=== PATIENT | female | born 1990 ===

== ENCOUNTER 2019-02-22 23:20 | Inpatient (IN) | payer OTHER ==
[2019-02-23] MEDS ORDERED: hydrOXYzine Pamoate 25 MG Cap PO ONE (01:33)
[2019-02-23] MEDS ORDERED: Lidocaine 1% 50 ML MDV INJECT PRN (04:26)
[2019-02-23] MEDS ORDERED: Carboprost Tromethamine 250 MCG/1 ML Amp IM PRN (04:26)
[2019-02-23] MEDS ORDERED: Sodium Chloride 0.9% 10 ML SDV IV PRN (04:26)
[2019-02-23] MEDS ORDERED: Tranexamic Acid 1,000 MG in Sodium Chloride 0.9% 100 ML IV PRN (04:26)
[2019-02-23] MEDS ORDERED: Nalbuphine 10 MG/1 ML Vial IVPUSH PRN (04:26)
[2019-02-23] MEDS ORDERED: Methylergonovine 0.2 MG/1 ML Amp IM PRN (04:26)
[2019-02-23] MEDS ORDERED: Ondansetron 4 MG/2 ML SDV IVPUSH PRN (04:26)
[2019-02-23] MEDS ORDERED: Misoprostol 200 MCG Tab PO PRN (04:26)
[2019-02-23] MEDS ORDERED: Sodium Chloride 0.9% 2.5 ML Syringe FLUSH PRN (04:26)
[2019-02-23] MEDS ORDERED: Butorphanol 1 MG/ML SDV IVPUSH PRN (04:26)
[2019-02-23] MEDS ORDERED: Sodium Chloride 0.9% 10 ML Syringe FLUSH PRN (04:26)
[2019-02-23] MEDS ORDERED: Water For Irrigation,Sterile 1,000 ML Container IRR PRN (04:26)
[2019-02-23] MEDS ORDERED: Oxytocin/0.9 % Sodium Chloride 30 UNIT/500 ML BAG IV SCH (04:30)
[2019-02-23] MEDS ORDERED: Lactated Ringers 1,000 ML IV SCH (04:30)
[2019-02-23] MEDS ORDERED: Ropivacaine HCl/PF 100 ML ONE (06:54)
--- NOTE | 2019-02-23 07:16 | PCM.PREANE ---
Preanesthetic Assessment - Anesthesia/Transfusion/Family Hx Anesthesia History: Prior Anesthesia Without Reaction Family History of Anesthesia Reaction: No Transfusion History: No Prior Transfusion(s) - Review of Systems General: No Symptoms Pulmonary: No Symptoms Cardiovascular: No Symptoms Gastrointestinal: No Symptoms Neurological: No Symptoms - Physical Assessment Height: 1.7 m Weight: 93.894 kg ASA Class: 1 - Lab Values: Laboratory Last Values WBC 13.50 K/uL (4.0-11.0) H 02/23/19 04:43 RBC 4.79 M/uL (4.30-5.90) 02/23/19 04:43 Hgb 12.0 g/dL (12.0-16.0) 02/23/19 04:43 Hct 37.4 % (36.0-46.0) 02/23/19 04:43 MCV 78.1 fL (80.0-98.0) L 02/23/19 04:43 MCH 25.1 pg (27.0-32.0) L 02/23/19 04:43 MCHC 32.1 g/dL (31.0-37.0) 02/23/19 04:43 RDW Std Deviation 45.3 fl (28.0-62.0) 02/23/19 04:43 RDW Coeff of Eric 16 % (11.0-15.0) H 02/23/19 04:43 Plt Count 262 K/uL (150-400) 02/23/19 04:43 MPV 9.40 fL (7.40-12.00) 02/23/19 04:43 Nucleated RBC % 0.0 /100WBC 02/23/19 04:43 Nucleated RBCs # 0 K/uL 02/23/19 04:43 Blood Type B POSITIVE 02/23/19 04:43 Antibody Screen NEGATIVE 02/23/19 04:43 - Allergies Allergies/Adverse Reactions: Allergies Allergy/AdvReac Type Severity Reaction Status Date / Time No Known Allergies Allergy Verified 02/20/19 00:13 - Acknowledgements Anesthesia Type Planned: Epidural Pt an Appropriate Candidate for the Planned Anesthesia: Yes Alternatives and Risks of Anesthesia Discussed w Pt/Guardian: Yes Pt/Guardian Understands and Agrees with Anesthesia Plan: Yes PreAnesthesia Questionnaire - Past Health History Medical/Surgical History: Denies Medical/Surgical History 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: Reports: - Past Surgical History HEENT Surgical History: Reports: Oral Surgery, Other (See Below) Other HEENT Surgeries/Procedures: wisdom teeth - SUBSTANCE USE Smoking Status *Q: Former Smoker Tobacco Use Within Last Twelve Months: No Second Hand Smoke Exposure: No Recreational Drug Use History: No - HOME MEDS Home Medications: Home Meds PNV #116/Iron Fumarate/FA/DHA [Expecta Combo Pack] 02/20/19 [History] - CURRENT (IN HOUSE) MEDS Current Meds: Current Medications Butorphanol Tartrate (Stadol) 1 mg IVPUSH Q1H PRN PRN Reason: Pain Last Admin: 02/23/19 04:54 Dose: 1 mg Carboprost Tromethamine (Hemabate Ds) 250 mcg IM ASDIRECTED PRN PRN Reason: Post Hemorrhage Tranexamic Acid 1,000 mg/ (Sodium Chloride) 110 mls @ 660 mls/hr IV ONETIME PRN PRN Reason: Bleeding Lactated Ringer's (Ringers, Lactated) 1,000 mls @ 150 mls/hr IV ASDIRECTED PAULA Last Admin: 02/23/19 04:54 Dose: 999 mls/hr Oxytocin/Sodium Chloride (Oxytocin 30 Unit/500 Ml-Ns) 30 unit in 500 mls @ 555 mls/hr IV TITRATE PAULA Lidocaine HCl (Xylocaine 1%) 50 ml INJECT ONETIME PRN PRN Reason: Laceration repair Methylergonovine Maleate (Methergine) 0.2 mg IM ASDIRECTED PRN PRN Reason: Post Hemorrhage Misoprostol (Cytotec) 200 mcg PO ONETIME PRN PRN Reason: Post Hemorrhage Nalbuphine HCl (Nubain) 10 mg IVPUSH Q1H PRN PRN Reason: Pain (severe 7-10) Ondansetron HCl (Zofran) 4 mg IVPUSH Q4H PRN PRN Reason: Nausea/Vomiting Sodium Chloride (Saline Flush) 10 ml FLUSH ASDIRECTED PRN PRN Reason: Keep Vein Open Sodium Chloride (Saline Flush) 2.5 ml FLUSH ASDIRECTED PRN PRN Reason: Keep Vein Open Sodium Chloride (Normal Saline) 10 ml IV ASDIRECTED PRN PRN Reason: IV Use Sterile Water (Sterile Water For Irrigation) 1,000 ml IRR ASDIRECTED PRN PRN Reason: delivery Discontinued Medications Hydroxyzine Pamoate (Vistaril) 50 mg PO ONETIME ONE Stop: 02/23/19 01:34 Last Admin: 02/23/19 02:02 Dose: 50 mg Ropivacaine (Naropin 0.2%) Confirm Administered Dose 100 mls @ as directed .ROUTE .STK-MED ONE Stop: 02/23/19 06:55
--- NOTE | 2019-02-23 07:20 | PCM.PRNOTE ---
- Free Text/Narrative Note: Anes Note Patient requsts epidural for L&D. Sitting position. Level L3-L4 Midline approach. Sterile technique. Cloroprep to lumbar area. Sterile fenestrated drape applied. Epidural space at 5 cm easily achieved single attempt with ease. Cath threaded 4 cm with ease. 9 cm devan at skin. Sterile dressing applied. Tolerated well. Test dose 0705 3 cc 1.5% lido with epi negative. Loading dose 10 cc 0.2% ropivicaine in slow divided doses 0707. Pump started with same solution at 0710. Leonardo well. Patient reports excellent analgesia. 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
[2019-02-23] MEDS ORDERED: Bupivacaine 0.5% 10 ML SDV ONE (08:10)
--- NOTE | 2019-02-23 11:32 | PCM.DEL ---
L & D Note - General Info Date of Service: 02/23/19 Mother's Due Date: 02/28/19 - Delivery Note Labor: Spontaneous, Augmented by Oxytocin Delivery Outcome: Livebirth Infant Delivery Method: Spontaneous Vaginal Delivery-Single Presentation: Left Occiput Anterior (VERITO) Nuchal Cord: None Prep: Other Anesthesia Type: Epidural Amniotic Fluid Description: Clear Episiotomy Type: None Laceration: None, 3rd Degree Suture type: Vicryl, Other (PDS for sphincter) Suture size: 3-0 Placenta: Intact, Spontaneous Cord: 3 Vessels Estimated Blood Loss: 300 Resuscitation Needed: Yes Watchung: Suctioned Score 1 min: 8 Delivery Comments (Free Text/Narrative):: Liveborn male 4400 grams. - General Info Date of Service: 02/23/19 - Patient Data Weight - Most Recent: 93.894 kg Lab Results Last 24 Hours: Laboratory Results - last 24 hr 02/23/19 02/23/19 Range/Units 04:43 04:43 WBC 13.50 H (4.0-11.0) K/uL RBC 4.79 (4.30-5.90) M/uL Hgb 12.0 (12.0-16.0) g/dL Hct 37.4 (36.0-46.0) % MCV 78.1 L (80.0-98.0) fL MCH 25.1 L (27.0-32.0) pg MCHC 32.1 (31.0-37.0) g/dL RDW Std Deviation 45.3 (28.0-62.0) fl RDW Coeff of Eric 16 H (11.0-15.0) % Plt Count 262 (150-400) K/uL MPV 9.40 (7.40-12.00) fL Nucleated RBC % 0.0 /100WBC Nucleated RBCs # 0 K/uL Blood Type B POSITIVE Antibody Screen NEGATIVE Med Orders - Current: Current Medications Butorphanol Tartrate (Stadol) 1 mg IVPUSH Q1H PRN PRN Reason: Pain Last Admin: 02/23/19 04:54 Dose: 1 mg Carboprost Tromethamine (Hemabate Ds) 250 mcg IM ASDIRECTED PRN PRN Reason: Post Hemorrhage Tranexamic Acid 1,000 mg/ (Sodium Chloride) 110 mls @ 660 mls/hr IV ONETIME PRN PRN Reason: Bleeding Lactated Ringer's (Ringers, Lactated) 1,000 mls @ 150 mls/hr IV ASDIRECTED [facility] Last Admin: 02/23/19 04:54 Dose: 999 mls/hr Oxytocin/Sodium Chloride (Oxytocin 30 Unit/500 Ml-Ns) 30 unit in 500 mls @ 555 mls/hr IV TITRATE [facility] Lidocaine HCl (Xylocaine 1%) 50 ml INJECT ONETIME PRN PRN Reason: Laceration repair Methylergonovine Maleate (Methergine) 0.2 mg IM ASDIRECTED PRN PRN Reason: Post Hemorrhage Misoprostol (Cytotec) 200 mcg PO ONETIME PRN PRN Reason: Post Hemorrhage Nalbuphine HCl (Nubain) 10 mg IVPUSH Q1H PRN PRN Reason: Pain (severe 7-10) Ondansetron HCl (Zofran) 4 mg IVPUSH Q4H PRN PRN Reason: Nausea/Vomiting Sodium Chloride (Saline Flush) 10 ml FLUSH ASDIRECTED PRN PRN Reason: Keep Vein Open Sodium Chloride (Saline Flush) 2.5 ml FLUSH ASDIRECTED PRN PRN Reason: Keep Vein Open Sodium Chloride (Normal Saline) 10 ml IV ASDIRECTED PRN PRN Reason: IV Use Sterile Water (Sterile Water For Irrigation) 1,000 ml IRR ASDIRECTED PRN PRN Reason: delivery Discontinued Medications Bupivacaine HCl (Sensorcaine-Mpf 0.5%) Confirm Administered Dose 10 ml .ROUTE .Leeo-reQall ONE Stop: 02/23/19 08:11 Hydroxyzine Pamoate (Vistaril) 50 mg PO ONETIME ONE Stop: 02/23/19 01:34 Last Admin: 02/23/19 02:02 Dose: 50 mg Ropivacaine (Naropin 0.2%) Confirm Administered Dose 100 mls @ as directed .ROUTE .STK-MED ONE Stop: 02/23/19 06:55 - Problem List & Annotations (1) Vaginal delivery SNOMED Code(s): 787100367 Code(s): O80 - ENCOUNTER FOR FULL-TERM UNCOMPLICATED DELIVERY Status: Acute Current Visit: Yes - Problem List Review Problem List Initiated/Reviewed/Updated: Yes
[2019-02-23] MEDS ORDERED: Benzocaine/Menthol 20%-0.5% Spray 78 GM Cannister TOP PRN (11:33)
[2019-02-23] MEDS ORDERED: Acetaminophen 500 MG Tab PO PRN (11:33)
[2019-02-23] MEDS ORDERED: Lanolin 100% Cream 7 GM Tube TOP PRN (11:33)
[2019-02-23] MEDS ORDERED: Witch Hazel Medicated Pads 40/Jar TOP PRN (11:33)
[2019-02-23] MEDS ORDERED: Ibuprofen 400 MG Tab PO PRN (11:33)
[2019-02-23] MEDS ORDERED: Hydrocortisone 2.5% Crm 30 GM Tube TOP PRN (11:33)
[2019-02-23] MEDS ORDERED: Bisacodyl 10 MG Supp RECTAL PRN (11:33)
[2019-02-23] MEDS ORDERED: Methylergonovine 0.2 MG/1 ML Amp ONE (11:43)
[2019-02-23] MEDS: Docusate Sodium 100 MG Cap PO PRN ×2 (12:58→20:46)
[2019-02-23] MEDS: Ibuprofen 800 MG Tab PO PRN (12:58)
[2019-02-23] MEDS: oxyCODONE 5 MG Tab PO PRN ×2 (14:05→22:05)
--- NOTE | 2019-02-23 14:10 | OR ---
SURGEON: Radha Senior M.D. DATE OF PROCEDURE: 02/23/2019 PREOPERATIVE DIAGNOSES: A 39-2/7 weeks' intrauterine , active spontaneous labor, suspected macrosomia, polyhydramnios. POSTOPERATIVE DIAGNOSES: A 39-2/7 weeks' intrauterine , active spontaneous labor, suspected macrosomia, polyhydramnios. PROCEDURES: Term spontaneous vaginal delivery, repair of third-degree laceration. PRIMARY SURGEON: Radha Senior MD. ANESTHESIA: Epidural. ESTIMATED BLOOD LOSS: Less than 300 mL. FINDINGS: Live-born male, scores 8 and 9, weighing 4400 g. Placenta spontaneous, Schultze intact with 3 vessels. Third-degree perineal laceration, repaired. COMPLICATIONS: None known. DISPOSITION: Stable to recovery. BRIEF HISTORY: This is a 28-year-old female. She is G2, P 1-0-0-1, with 1 prior vaginal delivery of an 8-pound 8-ounce male in 2013. She presents in active spontaneous labor. She has had care complicated by polyhydramnios and suspected macrosomia with estimated weight of 4250 g. She initially presented 5 to 6 cm dilated. She received an epidural for pain control. She had category 1 heart tones. She is known to be group B strep negative. Following the epidural, she had spontaneous rupture of membranes. She was 7 to 8 cm and progressed to complete. DESCRIPTION OF PROCEDURE: With the patient in the dorsal lithotomy position, the patient pushed over a total of a 1-1/2-hour time-period to a 5+ station. During the process of pushing, I did offer delivery after having a discussion regarding her perineum, which I explained to her was very short, and she reported to me that with her prior delivery she had a vacuum-assisted vaginal delivery with an episiotomy and severe laceration. At this point, when we had this discussion, I did offer section. I offered section after 1 hour of pushing, and we agreed that we would not let her push beyond 2 hours and also agreed at the beginning of labor not to assist with vacuum due to the suspected macrosomia. Understanding all this, she desired to proceed with vaginal delivery. She continued to push to a 5+ station. The patient had been placed in Wade position supine, and nurses were ready for suprapubic pressure, however, it was not needed. The head was delivered over the perineum with support with subsequent delivery of the 's shoulders and body without significant difficulty. Slightly rotating the shoulder, delivering the posterior shoulder first, I was able to deliver the shoulders without suprapubic pressure or any significant difficulty with subsequent delivery of the infant's body. The was bulb suctioned by nose and mouth and after the cord had ceased to pulsate it was doubly clamped and cut, and the was handed to the mother in the presence of nurse attending delivery. The was a liveborn male, scores 8 and 9, weight of 4400 g. Cord blood was collected for cord ABGs as well as routine cord blood sampling. Pitocin was initiated after delivery of the to assist with delivery of the placenta, which was delivered spontaneously, Schultze intact with 3 vessels. Upon inspection the pelvis and perineum, there were no periurethral, vaginal sidewall, cervical, or rectal lacerations. There was a third-degree perineal laceration. Upon inspection, the rectal sphincter had obviously been repaired previously. The tissue that was remaining was very friable and was scar like tissue. I did identify the sphincter with Linda clamps. I placed 4 [id number] sutures of 3-0 PDS in the sphincter and the connective tissue and scar tissue surrounding the sphincter, but again the sphincter itself was extremely friable. Once the sphincter was reapproximated, I proceeded with further repair using a running lock suture of 3-0 Vicryl for the vaginal mucosa, a deep running suture of the perineum with the same, and a subcuticular suture using the 3-0 Vicryl for the skin. Final sponge, needle, and instrument counts were reported as correct. There were no complications. The patient and baby remained in LDR in good condition. MAGNO / JOHANNE /[id number]
[2019-02-23] MEDS: Ketorolac 30 MG/ML SDV IVPUSH SCH ×2 (16:48→22:02)
[2019-02-24] MEDS: Ketorolac 30 MG/ML SDV IVPUSH SCH ×2 (04:08→10:50)
--- NOTE | 2019-02-24 06:14 | PCM48HPAN ---
Post Anesthesia Note - EVALUATION WITHIN 48HRS OF ANESTHETIC Vital Signs in Normal Range: Yes Patient Participated in Evaluation: Yes Respiratory Function Stable: Yes Airway Patent: Yes Cardiovascular Function Stable: Yes Hydration Status Stable: Yes Pain Control Satisfactory: Yes Nausea and Vomiting Control Satisfactory: Yes Mental Status Recovered: Yes Pulse Rate: 93 SaO2: 94 Resp Rate: 17 Blood Pressure: 114/76
--- NOTE | 2019-02-24 09:08 | PCM.PNPP ---
- General Info Date of Service: 03/03/19 Functional Status: Reports: Pain Controlled (pain resolved after bladder drained.), Tolerating Diet, Ambulating. Denies: Urinating (had avalos placed last night with 1200 ml out again. ) - Review of Systems General: Reports: No Symptoms HEENT: Reports: No Symptoms Pulmonary: Reports: No Symptoms Cardiovascular: Reports: No Symptoms Gastrointestinal: Reports: No Symptoms Genitourinary: Reports: No Symptoms Musculoskeletal: Reports: No Symptoms Skin: Reports: No Symptoms Neurological: Reports: No Symptoms Psychiatric: Reports: No Symptoms - Patient Data Vital Signs - Most Recent: Last Vital Signs Temp 36.6 C 02/24/19 07:43 Pulse 85 02/24/19 07:43 Resp 16 02/24/19 07:43 BP 108/69 02/24/19 07:43 Pulse Ox 95 02/24/19 07:43 Weight - Most Recent: 93.894 kg I&O - Last 24 Hours: Intake & Output 02/23/19 02/24/19 02/24/19 22:59 06:59 14:59 Output Total 2400 1950 Balance -2400 -1950 Lab Results - Last 24 Hours: Laboratory Results - last 24 hr 02/23/19 02/24/19 Range/Units 11:27 05:30 Hgb 10.8 L (12.0-16.0) g/dL Hct 34.7 L (36.0-46.0) % Cord ABG pH 7.266 (7.18-7.38) Cord ABG Base Excess -6 (-10--2) Cord VBG pH 7.264 (7.25-7.45) Cord VBG Base Excess -6 (-10--2) Med Orders - Current: Current Medications Acetaminophen (Tylenol Extra Strength) 500 mg PO Q4H PRN PRN Reason: Pain Acetaminophen (Tylenol Extra Strength) 1,000 mg PO Q4H PRN PRN Reason: Pain Benzocaine/Menthol (Dermoplast Pain Relief 20%-0.5% [place]) 78 gm TOP ASDIRECTED PRN PRN Reason: Perineal Comfort Measure Last Admin: 02/23/19 13:00 Dose: 1 canister Bisacodyl (Dulcolax) 10 mg RECTAL ONETIME PRN PRN Reason: Constipation Docusate Sodium (Colace) 100 mg PO BID PRN PRN Reason: Constipation Last Admin: 02/23/19 20:46 Dose: 100 mg Emollient Ointment (Lansinoh Hpa) 0 gm TOP ASDIRECTED PRN PRN Reason: Sore Nipples Hydrocortisone (Proctozone-Hc 2.5% Crm) 1 gm TOP Q6HR PRN PRN Reason: Itching Ibuprofen (Motrin) 400 mg PO Q4H PRN PRN Reason: Pain Ibuprofen (Motrin) 800 mg PO Q6H PRN PRN Reason: Pain Last Admin: 02/23/19 12:58 Dose: 800 mg Ketorolac Tromethamine (Toradol) 30 mg IVPUSH Q6H PAULA Stop: 02/28/19 17:00 Last Admin: 02/24/19 04:08 Dose: 30 mg Oxycodone HCl (Oxycodone) 5 mg PO Q2H PRN PRN Reason: Pain Last Admin: 02/23/19 22:05 Dose: 5 mg Witch Margoth (Tucks) 1 pad TOP ASDIRECTED PRN PRN Reason: comfort care Last Admin: 02/23/19 13:00 Dose: 1 tub Discontinued Medications Bupivacaine HCl (Sensorcaine-Mpf 0.5%) Confirm Administered Dose 10 ml .ROUTE .STK-MED ONE Stop: 02/23/19 08:11 Last Admin: 02/24/19 07:03 Dose: Not Given Butorphanol Tartrate (Stadol) 1 mg IVPUSH Q1H PRN PRN Reason: Pain Last Admin: 02/23/19 04:54 Dose: 1 mg Carboprost Tromethamine (Hemabate Ds) 250 mcg IM ASDIRECTED PRN PRN Reason: Post Hemorrhage Hydroxyzine Pamoate (Vistaril) 50 mg PO ONETIME ONE Stop: 02/23/19 01:34 Last Admin: 02/23/19 02:02 Dose: 50 mg Tranexamic Acid 1,000 mg/ (Sodium Chloride) 110 mls @ 660 mls/hr IV ONETIME PRN PRN Reason: Bleeding Lactated Ringer's (Ringers, Lactated) 1,000 mls @ 150 mls/hr IV ASDIRECTED PAULA Last Admin: 02/23/19 04:54 Dose: 999 mls/hr Oxytocin/Sodium Chloride (Oxytocin 30 Unit/500 Ml-Ns) 30 unit in 500 mls @ 555 mls/hr IV TITRATE PAULA Last Admin: 02/23/19 11:07 Dose: 999 mls/hr Ropivacaine (Naropin 0.2%) Confirm Administered Dose 100 mls @ as directed .ROUTE .Sprout ONE Stop: 02/23/19 06:55 Last Admin: 02/24/19 07:03 Dose: Not Given Lidocaine HCl (Xylocaine 1%) 50 ml INJECT ONETIME PRN PRN Reason: Laceration repair Methylergonovine Maleate (Methergine) 0.2 mg IM ASDIRECTED PRN PRN Reason: Post Hemorrhage Last Admin: 02/23/19 11:45 Dose: 0.2 mg Methylergonovine Maleate (Methergine) Confirm Administered Dose 0.2 mg .ROUTE .Sprout ONE Stop: 02/23/19 11:44 Last Admin: 02/23/19 18:48 Dose: Not Given Misoprostol (Cytotec) 200 mcg PO ONETIME PRN PRN Reason: Post Hemorrhage Nalbuphine HCl (Nubain) 10 mg IVPUSH Q1H PRN PRN Reason: Pain (severe 7-10) Ondansetron HCl (Zofran) 4 mg IVPUSH Q4H PRN PRN Reason: Nausea/Vomiting Sodium Chloride (Saline Flush) 10 ml FLUSH ASDIRECTED PRN PRN Reason: Keep Vein Open Sodium Chloride (Saline Flush) 2.5 ml FLUSH ASDIRECTED PRN PRN Reason: Keep Vein Open Sodium Chloride (Normal Saline) 10 ml IV ASDIRECTED PRN PRN Reason: IV Use Sterile Water (Sterile Water For Irrigation) 1,000 ml IRR ASDIRECTED PRN PRN Reason: delivery - Infant Interaction Disposition, : in Room with Family Infant Interaction: Holding Infant Infant Feeding: Breastfed ; Nursed Well Support Person: - Recovery Exam Fundal Tone: Firm Fundal Level: 1 Fingerbreadths Below Umbilicus Fundal Placement: Midline Lochia Amount: Small Lochia Color: Rubra/Red Perineum Description: Edematous Episiotomy/Laceration: Approximated Bladder Status: Indwelling Catheter in Place Urinary Elimination: Indwelling Catheter Other Urinary Elimination, : Patient voided 'small amount' at 1940, hat put in toilet for future voids. - Exam General: Alert, Oriented HEENT: Pupils Equal Neck: Supple Lungs: Normal Respiratory Effort Cardiovascular: Regular Rhythm GI/Abdominal Exam: Soft, Non-Tender, No Organomegaly, No Distention, No Mass Extremities: Normal Inspection, Non-Tender, No Pedal Edema Skin: Warm, Dry, Intact Neurological: No New Focal Deficit Psy/Mental Status: Alert, Normal Affect, Normal Mood - Problem List & Annotations (1) Vaginal delivery SNOMED Code(s): 901966938 Code(s): O80 - ENCOUNTER FOR FULL-TERM UNCOMPLICATED DELIVERY Status: Acute Current Visit: Yes - Problem List Review Problem List Initiated/Reviewed/Updated: Yes - My Orders Last 24 Hours: My Active Orders 02/23/19 11:33 Patient Status [ADT] Routine May Shower [RC] ASDIRECTED Up ad Neelam [RC] ASDIRECTED Vital Signs [RC] PER UNIT ROUTINE Acetaminophen [Tylenol Extra Strength] 1,000 mg PO Q4H PRN Acetaminophen [Tylenol Extra Strength] 500 mg PO Q4H PRN Benzocaine/Menthol [Dermoplast Pain Relief 20%-0.5% [place]] 78 gm TOP ASDIRECTED PRN Bisacodyl [Dulcolax] 10 mg RECTAL ONETIME PRN Docusate Sodium [Colace] 100 mg PO BID PRN Hydrocortisone [Proctozone-HC 2.5% Crm] 1 gm TOP Q6HR PRN Ibuprofen [Motrin] 400 mg PO Q4H PRN Ibuprofen [Motrin] 800 mg PO Q6H PRN Lanolin [Lansinoh HPA] See Dose Instructions TOP ASDIRECTED PRN Witch [place]oth [Tucks] 1 pad TOP ASDIRECTED PRN oxyCODONE 5 mg PO Q2H PRN Assess Lochia [WOMSER] Per Unit Routine Assess Uterine Involution [WOMSER] Per Unit Routine Peripheral IV Discontinue [OM.PC] Routine Resuscitation Status Routine 02/23/19 11:34 Perineal Care [OM.PC] Per Unit Routine 02/23/19 16:30 Ketorolac [Toradol] 30 mg IVPUSH Q6H 02/23/19 22:30 Insert Urinary Catheter [OM.PC] Q24H 02/23/19 Lunch Regular Diet [DIET] - Assessment Assessment:: PPD #1 after , macrosomic infant. Pain is controlled, due to urinary retention she would like to stay until tomorrow. - Plan Plan:: Continue care, catheter removed this am, monitor for voiding dysfunction. Dr. Simmons will see patient tomorrow and is aware of voiding issue.
[2019-02-24] MEDS: Ibuprofen 800 MG Tab PO PRN (15:30)
[2019-02-24] MEDS: Docusate Sodium 100 MG Cap PO PRN (15:30)
[2019-02-24] MEDS: Acetaminophen 500 MG Tab PO PRN (15:31)
[2019-02-25] MEDS: Ibuprofen 800 MG Tab PO PRN ×2 (04:01→10:19)
[2019-02-25] MEDS: Docusate Sodium 100 MG Cap PO PRN (04:01)
[2019-02-25] MEDS: oxyCODONE 5 MG Tab PO PRN ×2 (08:07→10:19)
[2019-02-25] MEDS: Acetaminophen 500 MG Tab PO PRN (08:07)
--- NOTE | 2019-02-25 09:55 | PCM.PNPP ---
- General Info Date of Service: 02/25/19 Subjective Update: 28yo P2 s/p of macrosomic , complicated by urinary retention. Patient still feel pelvic pressure after voiding and feeling of incomplete voiding. Bladder scan done , noted to be distended. Avalos passed in . Postvoid 850ml Functional Status: Reports: Pain Controlled, Tolerating Diet, Ambulating - Review of Systems General: Reports: No Symptoms HEENT: Reports: No Symptoms Pulmonary: Reports: No Symptoms Cardiovascular: Reports: No Symptoms Gastrointestinal: Reports: No Symptoms Genitourinary: Reports: No Symptoms Musculoskeletal: Reports: No Symptoms Skin: Reports: No Symptoms Neurological: Reports: No Symptoms Psychiatric: Reports: No Symptoms - General Info Date of Service: 02/25/19 - Patient Data Vital Signs - Most Recent: Last Vital Signs Temp 36.6 C 02/25/19 08:00 Pulse 91 02/25/19 08:00 Resp 18 02/25/19 08:00 BP 101/64 02/25/19 08:00 Pulse Ox 97 02/25/19 08:00 Weight - Most Recent: 93.894 kg I&O - Last 24 Hours: Intake & Output 02/24/19 02/25/19 02/25/19 22:59 06:59 14:59 Output Total 1450 Balance -1450 Med Orders - Current: Current Medications Acetaminophen (Tylenol Extra Strength) 500 mg PO Q4H PRN PRN Reason: Pain Last Admin: 02/25/19 08:07 Dose: 500 mg Acetaminophen (Tylenol Extra Strength) 1,000 mg PO Q4H PRN PRN Reason: Pain Benzocaine/Menthol (Dermoplast Pain Relief 20%-0.5% [place]) 78 gm TOP ASDIRECTED PRN PRN Reason: Perineal Comfort Measure Last Admin: 02/23/19 13:00 Dose: 1 canister Bisacodyl (Dulcolax) 10 mg RECTAL ONETIME PRN PRN Reason: Constipation Docusate Sodium (Colace) 100 mg PO BID PRN PRN Reason: Constipation Last Admin: 02/25/19 04:01 Dose: 100 mg Emollient Ointment (Lansinoh Hpa) 0 gm TOP ASDIRECTED PRN PRN Reason: Sore Nipples Hydrocortisone (Proctozone-Hc 2.5% Crm) 1 gm TOP Q6HR PRN PRN Reason: Itching Ibuprofen (Motrin) 400 mg PO Q4H PRN PRN Reason: Pain Ibuprofen (Motrin) 800 mg PO Q6H PRN PRN Reason: Pain Last Admin: 02/25/19 04:01 Dose: 800 mg Oxycodone HCl (Oxycodone) 5 mg PO Q2H PRN PRN Reason: Pain Last Admin: 02/25/19 08:07 Dose: 5 mg Witch [place] (Tucks) 1 pad TOP ASDIRECTED PRN PRN Reason: comfort care Last Admin: 02/23/19 13:00 Dose: 1 tub Discontinued Medications Bethanechol Chloride (Urecholine) 12.5 mg PO ONETIME ONE Stop: 02/25/19 09:01 Last Admin: 02/25/19 09:05 Dose: 12.5 mg Bupivacaine HCl (Sensorcaine-Mpf 0.5%) Confirm Administered Dose 10 ml .ROUTE .STK-MED ONE Stop: 02/23/19 08:11 Last Admin: 02/24/19 07:03 Dose: Not Given Butorphanol Tartrate (Stadol) 1 mg IVPUSH Q1H PRN PRN Reason: Pain Last Admin: 02/23/19 04:54 Dose: 1 mg Carboprost Tromethamine (Hemabate Ds) 250 mcg IM ASDIRECTED PRN PRN Reason: Post Hemorrhage Hydroxyzine Pamoate (Vistaril) 50 mg PO ONETIME ONE Stop: 02/23/19 01:34 Last Admin: 02/23/19 02:02 Dose: 50 mg Tranexamic Acid 1,000 mg/ (Sodium Chloride) 110 mls @ 660 mls/hr IV ONETIME PRN PRN Reason: Bleeding Lactated Ringer's (Ringers, Lactated) 1,000 mls @ 150 mls/hr IV ASDIRECTED PAULA Last Admin: 02/23/19 04:54 Dose: 999 mls/hr Oxytocin/Sodium Chloride (Oxytocin 30 Unit/500 Ml-Ns) 30 unit in 500 mls @ 555 mls/hr IV TITRATE [facility] Last Admin: 02/23/19 11:07 Dose: 999 mls/hr Ropivacaine (Naropin 0.2%) Confirm Administered Dose 100 mls @ as directed .ROUTE .STK-MED ONE Stop: 02/23/19 06:55 Last Admin: 02/24/19 07:03 Dose: Not Given Ketorolac Tromethamine (Toradol) 30 mg IVPUSH Q6H PAULA Stop: 02/28/19 17:00 Last Admin: 02/24/19 10:50 Dose: 30 mg Lidocaine HCl (Xylocaine 1%) 50 ml INJECT ONETIME PRN PRN Reason: Laceration repair Methylergonovine Maleate (Methergine) 0.2 mg IM ASDIRECTED PRN PRN Reason: Post Hemorrhage Last Admin: 02/23/19 11:45 Dose: 0.2 mg Methylergonovine Maleate (Methergine) Confirm Administered Dose 0.2 mg .ROUTE .STPANTA Systems-MED ONE Stop: 02/23/19 11:44 Last Admin: 02/23/19 18:48 Dose: Not Given Misoprostol (Cytotec) 200 mcg PO ONETIME PRN PRN Reason: Post Hemorrhage Nalbuphine HCl (Nubain) 10 mg IVPUSH Q1H PRN PRN Reason: Pain (severe 7-10) Ondansetron HCl (Zofran) 4 mg IVPUSH Q4H PRN PRN Reason: Nausea/Vomiting Sodium Chloride (Saline Flush) 10 ml FLUSH ASDIRECTED PRN PRN Reason: Keep Vein Open Sodium Chloride (Saline Flush) 2.5 ml FLUSH ASDIRECTED PRN PRN Reason: Keep Vein Open Sodium Chloride (Normal Saline) 10 ml IV ASDIRECTED PRN PRN Reason: IV Use Sterile Water (Sterile Water For Irrigation) 1,000 ml IRR ASDIRECTED PRN PRN Reason: delivery - Infant Interaction Infant Disposition, : [place] in Room with Family Interaction: Holding Infant Feeding: Breastfed ; Nursed Well Support Person: - Recovery Exam Fundal Tone: Firms with Massage Fundal Level: 1 Fingerbreadths Below Umbilicus Fundal Placement: Midline Lochia Amount: Scant Lochia Color: Rubra/Red Perineum Description: Other (see below) Other Perinuem Description: 3rd degree laceration with repair Episiotomy/Laceration: Approximated Bladder Status: Voiding Urinary Elimination: Voided Other Urinary Elimination, : Patient voided 'small amount' at 1940, hat put in toilet for future voids. - Exam General: Alert HEENT: Pupils Equal Neck: Supple Lungs: Clear to Auscultation Cardiovascular: Regular Rate, Regular Rhythm GI/Abdominal Exam: Normal Bowel Sounds Extremities: Normal Inspection Neurological: No New Focal Deficit Psy/Mental Status: Alert - Problem List & Annotations (1) Vaginal delivery SNOMED Code(s): 431230917 Code(s): O80 - ENCOUNTER FOR FULL-TERM UNCOMPLICATED DELIVERY Status: Acute Current Visit: Yes - Problem List Review Problem List Initiated/Reviewed/Updated: Yes - Assessment Assessment:: PPD #2 after , macrosomic . urinary retention - Plan Plan:: Discharge home with avalos to leg bag Will follow up in clinic in 1 week for avalos removal
== END 2019-02-25 12:15 | disposition home or self-care (01) | DRG 768 ==
LOC: MW.OBCHECK 23:20 → MW.OB 23:25 → UNDOADMOB 02-23 04:26 → MW.OBCHECK 02-23 04:26 → INTOOBSV 02-23 10:59 → OBSVTOIN 02-23 10:59 → MW.OB 02-23 11:33 → OBSVTOIN 02-23 11:33 → MW.OB 02-23 17:30
PROVIDERS: ADMIT Obstetrics & Gynecology; ATTEND Obstetrics & Gynecology
PROC: 10E0XZZ Delivery of Products of Conception, External Approach (ICD-10-PCS; principal; 2019-02-23)
PROC: 4A1HXCZ Monitoring of Products of Conception, Cardiac Rate, External Approach (ICD-10-PCS; 2019-02-23)
PROC: 0DQR0ZZ Repair Anal Sphincter, Open Approach (ICD-10-PCS; 2019-02-23)
PROC: 3E0R3BZ Introduction of Anesthetic Agent into Spinal Canal, Percutaneous Approach (ICD-10-PCS; 2019-02-23)
PROC: 00HU33Z Insertion of Infusion Device into Spinal Canal, Percutaneous Approach (ICD-10-PCS; 2019-02-23)
DX: O40.3XX0 Polyhydramnios, third trimester, not applicable or unspecified (principal); Z37.0 Single live birth; O70.20 Third degree perineal laceration during delivery, unspecified; R33.9 Retention of urine, unspecified; O90.89 Other complications of the puerperium, not elsewhere classified; O76 Abnormality in fetal heart rate and rhythm complicating labor and delivery; O36.63X0 Maternal care for excessive fetal growth, third trimester, not applicable or unspecified; Z3A.39 39 weeks gestation of pregnancy
CPT/HCPCS: 36415; 51701; 51702; 59409; 82803; 85014; 85018; 85027; 86850; 86900; 86901; A9270-GY; J0595; J1885; J2210; J2590; J3490; J7120

== ENCOUNTER 2020-07-17 18:49 | Emergency (ER) | payer OTHER ==
[2020-07-17] MEDS ORDERED: Ondansetron 4 MG/2 ML SDV IVPUSH ONE (19:45)
[2020-07-17] MEDS ORDERED: Lactated Ringers 1,000 ML IV ONE (19:45)
[2020-07-17] MEDS ORDERED: Sodium Chloride 0.9% 10 ML Syringe FLUSH PRN (19:45)
[2020-07-17] MEDS ORDERED: Sodium Chloride 0.9% 2.5 ML Syringe FLUSH PRN (19:45)
--- NOTE | 2020-07-17 19:45 | EDM.PDOC ---
[facility] GENERAL MEDICAL PROBLEM - General Chief Complaint: Gastrointestinal Problem Stated Complaint: VOMITING Time Seen by Provider: 07/17/20 19:08 Source of Information: Reports: Patient History Limitations: Reports: No Limitations - History of Present Illness INITIAL COMMENTS - FREE TEXT/NARRATIVE: 29-year-old female presents with nausea, vomiting for 2 days, associated with chills, lightheadedness, diffuse abdominal cramping. She denies fever, diarrhea, dysuria, cough, shortness of breath. She does feel weak. She has no medical problems. ROS: A 10-point review of systems, other than pertinent positives and negatives as stated per HPI, is otherwise negative Past medical history: No additional pertinent history Past Surgical history: No additional pertinent history Social history: No additional pertinent history Family history: No additional pertinent history PHYSICAL EXAM General: AOx4, GCS = 15, No distress HEENT: dry mucous membrane Neck: supple, no meningismus, no Kernig or Brudzinski Cardiac: S1S2 tachycardia Respiratory: CTAB, no crackles or rales, no wheezing Abdomen: Soft, nontender, no rebound or guarding, nondistended, no pulsatile mass. Back: nontender Musculoskeletal: NVI distally, no deformity Neuro: No focal deficits, CN 2 - 12 WNL. Lower abdomen Pain Score (Numeric/FACES): 1 - Related Data Allergies Allergy/AdvReac Type Severity Reaction Status Date / Time No Known Allergies Allergy Verified 02/20/19 00:13 Home Meds: Home Meds Citalopram [Citalopram HBr] 20 mg PO DAILY 07/17/20 [History] ClonazePAM [KlonoPIN] 0.5 mg PO DAILY 07/17/20 [History] Ondansetron [Zofran ODT] 4 mg PO Q6H PRN #12 tab.dis 07/17/20 [Rx] cephALEXin [Keflex] 500 mg PO Q8H #15 cap 07/17/20 [Rx] Past Medical History - Past Health History Medical/Surgical History: Denies Medical/Surgical History [employer] History: Reports: Psychiatric History: Reports: Anxiety, Depression - Infectious Disease History Infectious Disease History: Reports: Chicken Pox - Past Surgical History HEENT Surgical History: Reports: Oral Surgery, Other (See Below) Other HEENT Surgeries/Procedures: wisdom teeth, vineers Social & Family History - Family History Family Medical History: No Pertinent Family History - Caffeine Use Caffeine Use: Reports: None - Recreational Drug Use Recreational Drug Use: Yes ED ROS GENERAL - Review of Systems Review Of Systems: See Below (see dictation) ED EXAM, GENERAL - Physical Exam Exam: See Below (see dictation) Course - Vital Signs Last Recorded V/S: Last Vital Signs Temp 97.6 F 07/17/20 19:03 Pulse 112 H 07/17/20 19:03 Resp 18 07/17/20 19:03 BP 107/76 07/17/20 19:03 Pulse Ox 95 07/17/20 19:03 - Orders/Labs/Meds Orders: Active Orders 24 hr Category Date Time Status HCG QUALITATIVE,URINE [URCHEM] Stat Lab 07/17/20 20:16 Ordered Sodium Chloride 0.9% [Saline Flush] Med 07/17/20 19:45 Active 10 ml FLUSH ASDIRECTED PRN Sodium Chloride 0.9% [Saline Flush] Med 07/17/20 19:45 Active 2.5 ml FLUSH ASDIRECTED PRN Saline Lock Insert [OM.PC] Stat Oth 07/17/20 19:45 Ordered Medication Orders Sodium Chloride (Saline Flush) 10 ml FLUSH ASDIRECTED PRN PRN Reason: Keep Vein Open Sodium Chloride (Saline Flush) 2.5 ml FLUSH ASDIRECTED PRN PRN Reason: Keep Vein Open Labs: Laboratory Tests 07/17/20 07/17/20 07/17/20 Range/Units 19:30 19:30 20:00 WBC 11.58 H (4.0-11.0) K/uL RBC 5.63 (4.30-5.90) M/uL Hgb 14.6 (12.0-16.0) g/dL Hct 44.3 (36.0-46.0) % MCV 78.7 L (80.0-98.0) fL MCH 25.9 L (27.0-32.0) pg MCHC 33.0 (31.0-37.0) g/dL RDW Std Deviation 38.4 (28.0-62.0) fl RDW Coeff of Eric 14 (11.0-15.0) % Plt Count 296 (150-400) K/uL MPV 9.10 (7.40-12.00) fL Neut % (Auto) 75.5 (48.0-80.0) % Lymph % (Auto) 18.9 (16.0-40.0) % Summers % (Auto) 5.1 (0.0-15.0) % Eos % (Auto) 0.3 (0.0-7.0) % Baso % (Auto) 0.2 (0.0-1.5) % Neut # (Auto) 8.7 H (1.4-5.7) K/uL Lymph # (Auto) 2.2 (0.6-2.4) K/uL Summers # (Auto) 0.6 (0.0-0.8) K/uL Eos # (Auto) 0.0 (0.0-0.7) K/uL Baso # (Auto) 0.0 (0.0-0.1) K/uL Nucleated RBC % 0.0 /100WBC Nucleated RBCs # 0 K/uL Sodium 141 (136-145) mmol/L Potassium 3.8 (3.5-5.1) mmol/L Chloride 103 (98-107) mmol/L Carbon Dioxide 24.8 (21.0-32.0) mmol/L BUN 9 (7.0-18.0) mg/dL Creatinine 0.7 (0.6-1.0) mg/dL Est Cr Clr Drug Dosing 115.32 mL/min Estimated GFR (MDRD) > 60.0 ml/min Glucose 97 (74-106) mg/dL Calcium 9.6 (8.5-10.1) mg/dL Magnesium 2.0 (1.8-2.4) mg/dL Total Bilirubin 0.5 (0.2-1.0) mg/dL AST 14 L (15-37) IU/L ALT 28 (14-63) IU/L Alkaline Phosphatase 132 H (46-116) U/L Total Protein 7.9 (6.4-8.2) g/dL Albumin 4.2 (3.4-5.0) g/dL Globulin 3.7 (2.6-4.0) g/dL Albumin/Globulin Ratio 1.1 (0.9-1.6) Lipase 91 (73-393) U/L Urine Color YELLOW Urine Appearance SLT CLOUDY Urine pH 6.0 (5.0-8.0) Ur Specific [place] 1.025 (1.001-1.035) Urine Protein NEGATIVE (NEGATIVE) mg/dL Urine Glucose (UA) NEGATIVE (NEGATIVE) mg/dL Urine Ketones >=80 (NEGATIVE) mg/dL Urine Occult Blood LARGE H (NEGATIVE) Urine Nitrite NEGATIVE (NEGATIVE) Urine Bilirubin NEGATIVE (NEGATIVE) Urine Urobilinogen 1.0 (<2.0) EU/dL Ur Leukocyte Esterase SMALL H (NEGATIVE) Urine RBC 0-3 (0-2/HPF) Urine WBC 5-6 (0-5/HPF) Ur Epithelial Cells MODERATE (NONE-FEW) Amorphous Sediment FEW (NEGATIVE) Urine Bacteria 2+ H (NEGATIVE) Urine Mucus MODERATE (NONE-MOD) SARS-CoV-2 RNA (NIKKI) (NEGATIVE) 07/17/20 Range/Units 20:00 WBC (4.0-11.0) K/uL RBC (4.30-5.90) M/uL Hgb (12.0-16.0) g/dL Hct (36.0-46.0) % MCV (80.0-98.0) fL MCH (27.0-32.0) pg MCHC (31.0-37.0) g/dL RDW Std Deviation (28.0-62.0) fl RDW Coeff of Eric (11.0-15.0) % Plt Count (150-400) K/uL MPV (7.40-12.00) fL Neut % (Auto) (48.0-80.0) % Lymph % (Auto) (16.0-40.0) % Summers % (Auto) (0.0-15.0) % Eos % (Auto) (0.0-7.0) % Baso % (Auto) (0.0-1.5) % Neut # (Auto) (1.4-5.7) K/uL Lymph # (Auto) (0.6-2.4) K/uL Summers # (Auto) (0.0-0.8) K/uL Eos # (Auto) (0.0-0.7) K/uL Baso # (Auto) (0.0-0.1) K/uL Nucleated RBC % /100WBC Nucleated RBCs # K/uL Sodium (136-145) mmol/L Potassium (3.5-5.1) mmol/L Chloride (98-107) mmol/L Carbon Dioxide (21.0-32.0) mmol/L BUN (7.0-18.0) mg/dL Creatinine (0.6-1.0) mg/dL Est Cr Clr Drug Dosing mL/min Estimated GFR (MDRD) ml/min Glucose (74-106) mg/dL Calcium (8.5-10.1) mg/dL Magnesium (1.8-2.4) mg/dL Total Bilirubin (0.2-1.0) mg/dL AST (15-37) IU/L ALT (14-63) IU/L Alkaline Phosphatase (46-116) U/L Total Protein (6.4-8.2) g/dL Albumin (3.4-5.0) g/dL Globulin (2.6-4.0) g/dL Albumin/Globulin Ratio (0.9-1.6) Lipase (73-393) U/L Urine Color Urine Appearance Urine pH (5.0-8.0) Ur Specific [place] (1.001-1.035) Urine Protein (NEGATIVE) mg/dL Urine Glucose (UA) (NEGATIVE) mg/dL Urine Ketones (NEGATIVE) mg/dL Urine Occult Blood (NEGATIVE) Urine Nitrite (NEGATIVE) Urine Bilirubin (NEGATIVE) Urine Urobilinogen (<2.0) EU/dL Ur Leukocyte Esterase (NEGATIVE) Urine RBC (0-2/HPF) Urine WBC (0-5/HPF) Ur Epithelial Cells (NONE-FEW) Amorphous Sediment (NEGATIVE) Urine Bacteria (NEGATIVE) Urine Mucus (NONE-MOD) SARS-CoV-2 RNA (NIKKI) NEGATIVE (NEGATIVE) Meds: Medications Generic Name Dose Route Start Last Admin Trade Name Freq PRN Reason Stop Dose Admin Sodium Chloride 10 ml 07/17/20 19:45 Saline Flush FLUSH ASDIRECTED PRN Keep Vein Open Sodium Chloride 2.5 ml 07/17/20 19:45 Saline Flush FLUSH ASDIRECTED PRN Keep Vein Open Discontinued Medications Generic Name Dose Route Start Last Admin Trade Name [place] PRN Reason Stop Dose Admin Lactated Ringer's 1,000 mls @ 999 mls/hr 07/17/20 19:45 07/17/20 19:52 Ringers, Lactated IV 07/17/20 20:45 999 mls/hr .BOLUS ONE Administration Ceftriaxone Sodium/Dextrose 1 50 mls @ 100 mls/hr 07/17/20 21:15 07/17/20 21:38 gm/ Premix IV 07/17/20 21:44 100 mls/hr ONETIME ONE Administration Ondansetron HCl 4 mg 07/17/20 19:45 07/17/20 19:52 Zofran IVPUSH 07/17/20 19:46 4 mg ONETIME ONE Administration - Re-Assessments/Exams Free Text/Narrative Re-Assessment/Exam: 07/17/20 4724 After IV fluids in the ER, the patient improved and is currently stable for discharge. I performed a repeat exam and did not appreciate new abnormal findings. Patient exhibits normal vital signs and has a normal gait on road test. I advised the patient to return to the ER for reevaluation if symptoms worsened, including fever, worsening pain, or any other worrisome symptoms. I instructed the patient to follow up with their PCP within 2-3 days. MEDICAL DECISION MAKING: I reviewed the patients past medical records, lab and radiographic findings. I discussed the case with the patient. My differential diagnosis included: Gastroenteritis, food poisoning, Covid. Her urine analysis demonstrated traces of UTI. She has not vomited in the ER, she feels much improved after IV fluids and Zofran. Tachycardia resolved after IV fluids. Her Covid test was negative. Clinically consistent with gastroenteritis. Her abdomen was soft and nontender, there was no tenderness to right lower quadrant and there was a negative Rovsing sign, I do not suspect appendicitis. I suspect her trace leukocytosis is likely secondary to her UTI and vomiting. Departure - Departure Time of Disposition: 22:13 Disposition: Home, Self-Care 01 Condition: Good Clinical Impression: UTI, Urinary tract infectious disease, Vomiting - Discharge Information *PRESCRIPTION DRUG MONITORING PROGRAM REVIEWED*: Not Applicable *COPY OF PRESCRIPTION DRUG MONITORING REPORT IN PATIENT RONAL: Not Applicable Prescriptions: cephALEXin [Keflex] 500 mg PO Q8H #15 cap Ondansetron [Zofran ODT] 4 mg PO Q6H PRN #12 tab.dis PRN Reason: Vomiting Instructions: Antibiotic Medicine, Adult, Urinary Tract Infection, Adult, [id number], Dehydration, Adult, [id number], Nausea and Vomiting, Adult Referrals: Mackenzie Rayo DO [Primary Care Provider] - 3 Days Forms: ED Department Discharge Additional Instructions: The need for follow-up, as well as the timing and circumstances, are variable depending upon the specifics of your emergency department visit. If you don't have a primary care physician on staff, we will provide you with a referral. We always advise you to contact your personal physician following an emergency department visit to inform them of the circumstance of the visit and for follow-up with them and/or the need for any referrals to a consulting specialist. The emergency department will also refer you to a specialist when appropriate. This referral assures that you have the opportunity for follow-up care with a specialist. All of these measure are taken in an effort to provide you with optimal care, which includes your follow-up. Under all circumstances we always encourage you to contact your private physician who remains a resource for coordinating your care. When calling for follow-up care, please make the office aware that this follow-up is from your recent emergency room visit. If for any reason you are refused follow-up, please contact the [facility] Emergency Department at and asked to speak to the emergency department charge nurse. If you do not have a primary care doctor, please follow up with the clinics below within 3-[address] [facility] - Primary [facility] [address] [place] [id number] [address] [place] [address] Sepsis Event Note (ED) - Evaluation Sepsis Screening Result: No Definite Risk - Focused Exam Vital Signs: Vital Signs Temp Pulse Resp BP Pulse Ox 07/17/20 19:03 97.6 F 112 H 18 107/76 95 - My Orders Last 24 Hours: My Active Orders 07/17/20 19:45 Sodium Chloride 0.9% [Saline Flush] 10 ml FLUSH ASDIRECTED PRN Sodium Chloride 0.9% [Saline Flush] 2.5 ml FLUSH ASDIRECTED PRN Saline Lock Insert [OM.PC] Stat 07/17/20 20:16 HCG QUALITATIVE,URINE [URCHEM] Stat - Assessment/Plan Last 24 Hours: My Active Orders 07/17/20 19:45 Sodium Chloride 0.9% [Saline Flush] 10 ml FLUSH ASDIRECTED PRN Sodium Chloride 0.9% [Saline Flush] 2.5 ml FLUSH ASDIRECTED PRN Saline Lock Insert [OM.PC] Stat 07/17/20 20:16 HCG QUALITATIVE,URINE [URCHEM] Stat
[2020-07-17 20:36] LABS: BLOOD UREA NITROGEN,BUN 9 mg/dL (7.0-18.0); CARBON DIOXIDE,CO2 24.8 mmol/L (21.0-32.0); CHLORIDE,CL 103 mmol/L (98-107); GLUCOSE RANDOM 97 mg/dL (74-106); LIPASE 91 U/L (73-393); POTASSIUM,K 3.8 mmol/L (3.5-5.1); SODIUM,NA 141 mmol/L (136-145)
[2020-07-17] MEDS ORDERED: cefTRIAXone 1 GM in Premix Bag 1 BAG IV ONE (21:15)
== END 2020-07-17 22:30 | disposition home or self-care (01) ==
LOC: MW.ED 18:49
DX: N39.0 Urinary tract infection, site not specified (principal); F41.9 Anxiety disorder, unspecified; F32.9 Major depressive disorder, single episode, unspecified; Z79.899 Other long term (current) drug therapy; Z20.828 Contact with and (suspected) exposure to other viral communicable diseases
CPT/HCPCS: 36415; 80053; 81001; 81025; 83690; 83735; 85025; 87635; 96365; 96375; 99284; J0696; J2405; J7120; U0002